=== PATIENT | female | born 1980 | race Two or more races ===

== ENCOUNTER 2023-12-26 13:00 | Emergency (ER) | payer OTHER ==
[2023-12-26 13:11] VITALS: RESP 16; TEMP 97.8; BMI 26.5
[2023-12-26] MEDS ORDERED: MECLIZINE HCL 25 MG TABLET (FP) ONE (14:24)
[2023-12-26] MEDS ORDERED: METOCLOPRAMIDE HCL INJECTION 10 MG/2 ML VIAL ONE (14:24)
[2023-12-26 14:25] LABS: BASO % 0.9 % (0-2.0); EOS % 0.2 % (0-4.5); HEMATOCRIT 42.2 % (32.4-45.2); HEMOGLOBIN 14.5 GM/dL (10.7-15.3); LYMPH % 24.8 % (8-40); MCH 29.8 pg (25.7-33.7); MCHC 34.3 g/dl (32.0-36.0); MEAN PLT VOLUME 7.6 fl (7.5-11.1); MONO % 6.9 % (3.8-10.2); NEUT % 67.2 % (42.8-82.8); PLATELET COUNT 267 10^3/uL (134-434); RBC 4.85 M/mm3 (3.60-5.2); WHITE BLOOD COUNT 7.3 K/mm3 (4.0-10.0)
[2023-12-26] MEDS: METOCLOPRAMIDE HCL INJECTION 10 MG/2 ML VIAL IVPB ONE (14:37)
[2023-12-26] MEDS: MECLIZINE HCL 25 MG TABLET (FP) PO ONE (14:37)
[2023-12-26] MEDS: SODIUM CHLORIDE 0.9% 500 ML INFUS.BAG IV ONE (14:37)
[2023-12-26 14:43] LABS: POTASSIUM 3.9 mmol/L (3.5-5.1)
[2023-12-26 14:45] LABS: CALCIUM 9.7 mg/dL (8.5-10.1)
[2023-12-26 14:46] LABS: ALBUMIN 4.2 g/dl (3.4-5.0); BLOOD UREA NITROGEN 12.5 mg/dL (7-18)
[2023-12-26 14:49] LABS: CREATININE 0.9 mg/dL (0.55-1.3)
[2023-12-26 14:50] LABS: BILIRUBIN,TOTAL 0.8 mg/dL (0.2-1); TOT PROT 7.5 g/dl (6.4-8.2)
[2023-12-26 16:15] VITALS: BP 106/73; PULSE 71
== END 2023-12-26 16:11 | disposition home or self-care (01) ==
LOC: JER 13:00
PROC: 3E033GC Introduction of Other Therapeutic Substance into Peripheral Vein, Percutaneous Approach (ICD-10-PCS; principal; 2023-12-26)
DX: R42 Dizziness and giddiness (principal); R51.9 Headache, unspecified
CPT/HCPCS: 36415; 70496-TC; 70498-TC; 80053; 84703; 85025; 99285-25